=== PATIENT | female | born 1950 | race Caucasian/White ===

== ENCOUNTER 2025-04-29 05:34 | Day surgery (SDC) | payer MEDICARE, OTHER ==
[2025-04-22 10:43] LABS: MEAN PLATELET VOLUME 8.4 FL (7.4-10.4); PRE OP HEMATOCRIT 38.5 % (35.0-45.0); PRE OP HEMOGLOBIN 12.8 g/dL (12.0-16.0); PRE OP PLATELET COUNT 236 X10'3 (140-440); PRE OP WHITE BLOOD COUNT 6.7 10'3 (4.8-10.8); RED CELL DISTRIBUTION WIDTH 14.3 % (11.5-14.5)
[2025-04-22 11:00] LABS: CREATININE 1.49 MG/DL (0.40-0.90); PRE OP ALT 25 U/L (30-65); PRE OP ANION GAP 10 (8-16); PRE OP AST 15 U/L (10-37); PRE OP BILIRUB, TOTAL 0.3 MG/DL (0.0-1.0); PRE OP GLUCOSE 109 MG/DL (70-104); PRE OP POTASSIUM 4.0 MMOL/L (3.4-5.1); PRE OP SODIUM 146 MMOL/L (135-145); TOTAL CARBON DIOXIDE 22.9 MMOL/L (24-32); eGFR 34 ML/MIN
[2025-04-29] VITALS (11 sets, daily range): BP systolic 125–165; BP diastolic 61–100; PULSE 57–60; RESP 12–17; TEMP 97.3; O2SAT 92–97
[~2025-04-29] VITALS: Ht 170.2 cm; Wt 104.4 kg
[~2025-04-29 05:34] MED LIST: AMIO200T76 PO; APIX5TAB3 PO; ASCO-134 PO; ATOR40TA72 PO; CALC-212 PO; CHOL200012 PO; CO Q 10 PO; CYAN500T78 PO; DOCUMENT DATE & TIME OF BETA-BLOCKER PO ONE; FERR-121 PO; GLUC1CAP36 PO; METO-384 PO; MULT-1085 PO; VITA1CAP PO
[2025-04-29] MEDS: ringers solution, lacted 1,000 ML IV SCH (06:16)
[2025-04-29] MEDS: ceFAZolin 2gm/dext,iso 50mL 50 ML IV ONE (06:17)
[2025-04-29] MEDS ORDERED: iohexol 300 MG/1 ML 50ml polymer ONE (06:47)
[2025-04-29] MEDS ORDERED: iohexol 300mg/ml 100ml inj. ONE (06:47)
[2025-04-29] MEDS ORDERED: midazolam 1 mg/ML 2ml injection ONE (07:13)
[2025-04-29] MEDS ORDERED: fentaNYL/PF 50MCG/1 ML 2ML syringe ONE (07:13)
[2025-04-29] MEDS ORDERED: propofol inj 20 ML IV ONE (07:13)
[2025-04-29] MEDS ORDERED: dexamethasone sod phosphate 4mg/ml inj. ONE (07:46)
[2025-04-29] MEDS ORDERED: morphine 4 MG/ML inj SYRINge IV PRN (08:00)
[2025-04-29] MEDS ORDERED: labetalol 20mg/4ml (5mg/ml) syringe IV PRN (08:00)
[2025-04-29] MEDS ORDERED: ondansetron/PF 4mg/2ml inj IV PRN (08:00)
[2025-04-29] MEDS ORDERED: ringers solution, lacted 1,000 ML IV SCH (08:00)
[2025-04-29] MEDS ORDERED: HYDROmorphone/PF 0.2 MG/ML SYRINGE IV PRN ×2 (08:00)
[2025-04-29] MEDS: iohexol 300 MG/1 ML 50ml polymer IV ONE (08:04)
[2025-04-29] MEDS ORDERED: ondansetron/PF 4mg/2ml inj ONE (08:37)
--- NOTE | 2025-04-29 09:36 | OPERATIVE REPORT ---
Operative Report Providers to CC ~ Date of Procedure: Apr 29, 2025 Pre-Operative Diagnosis: Bilateral renal stones, left ureteral stone Post-Operative Diagnosis SAME as PRE-Op Procedure Performed One. Cystourethroscopy. 2. Bilateral retrograde pyelography. 3. Left ureteroscopic laser lithotripsy for a stone within the left proximal ureter. Four. Bilateral nephroscope epic laser lithotripsy for renal stones in separate anatomic locations. Five. Bilateral ureteral stent placement. Six. Fluoroscopy with interpretation less than 1 hour. Surgeon: Sajan Hayes MD Director Of Acquisitions None. Anesthesiologist: Osmany Blankenship Type of Anesthesia: General Findings: Fluoroscopic findings: Left-sided retrograde pyelography demonstrated near impaction of the proximal ureter with the radiolucent filling defect and several radiolucent filling defects within the renal pelvis and upper pole of the kidney. On the right she demonstrated radiopaque filling defects in the upper pole of the kidney. Final images demonstrated removal of all filling defects and coiling of ureteral stents with an each renal pelvis and bladder. Complications None. Prosthetics\Implants used: Bilateral 4.8 x 24 cm ureteral stents. Estimated Blood Loss: None. Specimen Removed: Bilateral kidney stone fragments. Description of Procedure: The patient was under the effects of general anesthesia and prepped and draped in sterile fashion. We entered the urethra with a 21 Scottish scope and observed a moderate cystocele but otherwise normal anatomy with orthotopic ureteral orifices. There were no tumors or stones in the bladder. The left ureter was cannulated with an open-ended catheter and retrograde pyelography was performed revealing the above-mentioned findings. A wire was advanced into the upper tract in the long side this wire using a train tracking technique with a 2nd safety wire we performed semi rigid ureteroscopy. We identified a stone in the proximal ureter which was partially fragmented using laser energy. Once fragment of the stone fragments were successfully pushed into the renal pelvis. With a safety wire replaced through our semi rigid ureteral scope the ureteral scope was offloaded. One of our wires was pins to the patient's drapes and the 2nd wire was used to advance a 14 Scottish access sheath to the level of the proximal ureter. Through this access sheath a continuous vacuum assisted ureteral scope was advanced and used to fragment all of the patient's stone burden into small sandlike particles which were then evacuated through this scope. We then offloaded our scope and access sheath under vision and sudden or damage to the ureter. The previous wire was used to advanced and deployed a 4.8 Scottish by 24 cm stent and we observed good coiling within the renal pelvis. Similarly we performed right retrograde pyelography revealing the above. With a wire advanced into the right upper tract semi rigid ureteroscopy was similarly performed but we identified and no right ureteral stones. With two wires within the upper tract one of the wires was pinched to the patient straight and the ot her wire was used to advanced the 14 Scottish sheath to the level of the proximal ureter. Through this sheath we again performed nephroscopy using a continuous flow scope and we identified several large stones in the upper pole and a small stone in the lower pole. All stones were treated with laser energy until they were fragmented into tiny sandlike particles which were then evacuated through the scope. We then removed our scope after removing all visible stone burden and son no damage to the ureter. With the access sheath also removed we used our previously placed wire to advanced and deployed a ureteral stent and we observed good coiling within the renal pelvis and bladder as well. This marked the end of the procedure. Counts repoted as correct: Yes X-Ray findings: No Foreign body SAJAN HAYES MD Apr 29, 2025 09:36
[2025-04-29] MEDS: hydrALAZINE 20mg/ml inj. IV PRN (09:50)
[2025-04-29] MEDS: acetaminophen 1,000mg/100ml IV 100 ML IV PRN (10:08)
== END 2025-04-29 10:31 | disposition home or self-care (01) ==
LOC: PAS 05:34
PROVIDERS: ATTEND Urology
DX: N13.2 Hydronephrosis with renal and ureteral calculous obstruction (principal); G47.09 Other insomnia; I48.91 Unspecified atrial fibrillation; Z86.73 Personal history of transient ischemic attack (TIA), and cerebral infarction without residual deficits; Z79.899 Other long term (current) drug therapy; Z87.442 Personal history of urinary calculi; Z98.890 Other specified postprocedural states; Z87.01 Personal history of pneumonia (recurrent)
CPT/HCPCS: 36415; 52332; 74420; 80053; 82948; 85025; 88300; A4618; A7000; C1747; C1769; C2617; C9761; J0131; J0360; J1100; J2250; J2405; J2704; J3010; J7030; J7120; Q9967; Z7506; Z7508; Z7512; Z7610; 76000